=== PATIENT | male | born 1965 | race American Indian/Alaskan Native ===

== ENCOUNTER 2019-04-28 18:57 | Emergency (ER) | payer MEDICARE, MEDICAID ==
--- NOTE | 2019-04-28 20:31 | Emergency Department Report ---
ED General Adult HPI - General Chief complaint: Psych Stated complaint: SCHIZOPHRENIA Time Seen by Provider: 04/28/19 19:39 Source: patient, family, EMS Mode of arrival: Ambulatory Limitations: No Limitations - History of Present Illness Initial comments: Patient presents to the emergency department a chief complaint of aggressive behavior and noncompliance with medications. Patient has a history of paranoid schizophrenia and has not taken his medications since January 23. patient states that he has no suicidal or homicidal ideations. The patient is to the ED with his sister who is his guardian. -: Gradual Improves with: none Worsens with: none Associated Symptoms: denies other symptoms Treatments Prior to Arrival: none - Related Data Allergies Allergy/AdvReac Type Severity Reaction Status Date / Time No Known Allergies Allergy Verified 04/28/19 19:22 ED Review of Systems ROS: Stated complaint: SCHIZOPHRENIA Other details as noted in HPI Comment: All other systems reviewed and negative Constitutional: denies: chills, fever Eyes: denies: eye pain, eye discharge, vision change ENT: denies: ear pain, throat pain Respiratory: denies: cough, shortness of breath, wheezing Cardiovascular: denies: chest pain, palpitations Endocrine: no symptoms reported Gastrointestinal: denies: abdominal pain, nausea, diarrhea Genitourinary: denies: urgency, dysuria Musculoskeletal: denies: back pain, joint swelling, arthralgia Skin: denies: rash, lesions Neurological: denies: headache, weakness, paresthesias Psychiatric: denies: anxiety, depression Hematological/Lymphatic: denies: easy bleeding, easy bruising ED Past Medical Hx - Past Medical History Previous Medical History?: Yes Hx Psychiatric Treatment: Yes (Schizophrenia) - Surgical History Past Surgical History?: No - Social History Smoking Status: Current Every Day Smoker Substance Use Type: None ED Physical Exam - General Limitations: No Limitations General appearance: alert, in no apparent distress - Head Head exam: Present: atraumatic, normocephalic - Eye Eye exam: Present: normal appearance - ENT ENT exam: Present: mucous membranes moist - Neck Neck exam: Present: normal inspection - Respiratory Respiratory exam: Present: normal lung sounds bilaterally. Absent: respiratory distress, wheezes, rales - Cardiovascular Cardiovascular Exam: Present: regular rate, normal rhythm. Absent: systolic murmur, diastolic murmur, rubs, gallop - GI/Abdominal GI/Abdominal exam: Present: soft, normal bowel sounds - Rectal Rectal exam: Present: deferred - Extremities Exam Extremities exam: Present: normal inspection - Back Exam Back exam: Present: normal inspection - Neurological Exam Neurological exam: Present: alert, oriented X3 - Psychiatric Psychiatric exam: Present: normal affect, normal mood, flat affect, other (paranoid and tangential speech). Absent: homicidal ideation, suicidal ideation - Skin Skin exam: Present: warm, dry, intact, normal color. Absent: rash ED Course Vital Signs 04/28/19 19:44 Temperature 98.6 F Pulse Rate 98 H Respiratory 16 Rate Blood Pressure 139/96 O2 Sat by Pulse 97 Oximetry ED Medical Decision Making - Lab Data Result diagrams: 04/28/19 22:08 04/28/19 22:08 Lab Results 04/28/19 04/28/19 04/28/19 Range/Units 22:08 22:08 22:08 WBC 6.7 (4.5-11.0) K/mm3 RBC 4.28 (3.65-5.03) M/mm3 Hgb 13.9 (11.8-15.2) gm/dl Hct 40.3 (35.5-45.6) % MCV 94 (84-94) fl MCH 33 H (28-32) pg MCHC 35 H (32-34) % RDW 13.3 (13.2-15.2) % Plt Count 346 (140-440) K/mm3 Lymph % (Auto) 33.0 (13.4-35.0) % [place] % (Auto) 11.4 H (0.0-7.3) % Eos % (Auto) 2.1 (0.0-4.3) % Baso % (Auto) 1.3 (0.0-1.8) % Lymph # 2.2 (1.2-5.4) K/mm3 [place] # 0.8 (0.0-0.8) K/mm3 Eos # 0.1 (0.0-0.4) K/mm3 Baso # 0.1 (0.0-0.1) K/mm3 Seg Neutrophils % 52.2 (40.0-70.0) % Seg Neutrophils # 3.5 (1.8-7.7) K/mm3 Sodium 141 (137-145) mmol/L Potassium 3.9 (3.6-5.0) mmol/L Chloride 103.2 (98-107) mmol/L Carbon Dioxide 25 (22-30) mmol/L Anion Gap 17 mmol/L BUN 9 (9-20) mg/dL Creatinine 1.1 (0.8-1.5) mg/dL Estimated GFR > 60 ml/min BUN/Creatinine Ratio 8 % Glucose 86 (75-100) mg/dL Calcium 8.7 (8.4-10.2) mg/dL Total Bilirubin 0.20 (0.1-1.2) mg/dL AST 17 (5-40) units/L ALT 10 (7-56) units/L Alkaline Phosphatase 83 (35-129) units/L Total Protein 7.2 (6.3-8.2) g/dL Albumin 3.8 L (3.9-5) g/dL Albumin/Globulin Ratio 1.1 % Salicylates < 0.3 L (2.8-20.0) mg/dL Acetaminophen (10.0-30.0) ug/mL Plasma/Serum Alcohol (0-0.07) % 04/28/19 04/28/19 Range/Units 22:08 22:08 WBC (4.5-11.0) K/mm3 RBC (3.65-5.03) M/mm3 Hgb (11.8-15.2) gm/dl Hct (35.5-45.6) % MCV (84-94) fl MCH (28-32) pg MCHC (32-34) % RDW (13.2-15.2) % Plt Count (140-440) K/mm3 Lymph % (Auto) (13.4-35.0) % [place] % (Auto) (0.0-7.3) % Eos % (Auto) (0.0-4.3) % Baso % (Auto) (0.0-1.8) % Lymph # (1.2-5.4) K/mm3 [place] # (0.0-0.8) K/mm3 Eos # (0.0-0.4) K/mm3 Baso # (0.0-0.1) K/mm3 Seg Neutrophils % (40.0-70.0) % Seg Neutrophils # (1.8-7.7) K/mm3 Sodium (137-145) mmol/L Potassium (3.6-5.0) mmol/L Chloride (98-107) mmol/L Carbon Dioxide (22-30) mmol/L Anion Gap mmol/L BUN (9-20) mg/dL Creatinine (0.8-1.5) mg/dL Estimated GFR ml/min BUN/Creatinine Ratio % Glucose (75-100) mg/dL Calcium (8.4-10.2) mg/dL Total Bilirubin (0.1-1.2) mg/dL AST (5-40) units/L ALT (7-56) units/L Alkaline Phosphatase (35-129) units/L Total Protein (6.3-8.2) g/dL Albumin (3.9-5) g/dL Albumin/Globulin Ratio % Salicylates (2.8-20.0) mg/dL Acetaminophen < 5.0 L (10.0-30.0) ug/mL Plasma/Serum Alcohol < 0.01 (0-0.07) % - Medical Decision Making medically cleared awaiting psycgh evaluation and placement Critical care attestation.: If time is entered above; I have spent that time in minutes in the direct care of this critically ill patient, excluding procedure time. ED Disposition Clinical Impression: Schizophrenia, Aggressive behavior, Noncompliance with medications Disposition: DC/TX-65 PSY HOSP/PSY UNIT Is pt being admited?: No Does the pt Need Aspirin: No Condition: Stable
[2019-04-28 22:28] LABS: Basophils # (Auto) 0.1 K/mm3 (0.0-0.1); Basophils % (Auto) 1.3 % (0.0-1.8); Eosinophils # (Auto) 0.1 K/mm3 (0.0-0.4); Eosinophils % (Auto) 2.1 % (0.0-4.3); Hematocrit 40.3 % (35.5-45.6); Hemoglobin 13.9 gm/dl (11.8-15.2); Lymphocytes # (Auto) 2.2 K/mm3 (1.2-5.4); Mean Corpuscular HGB Conc 35 % (32-34); Mean Corpuscular Volume 94 fl (84-94); Monocytes # (Auto) 0.8 K/mm3 (0.0-0.8); Monocytes % (Auto) 11.4 % (0.0-7.3); Platelet Count 346 K/mm3 (140-440); Red Blood Count 4.28 M/mm3 (3.65-5.03); Red Cell Distribution Width 13.3 % (13.2-15.2)
[2019-04-28 22:53] LABS: Alanine Aminotransferase 10 units/L (7-56); Albumin 3.8 g/dL (3.9-5); BUN/Creatinine Ratio 8; Blood Urea Nitrogen 9 mg/dL (9-20); Calcium 8.7 mg/dL (8.4-10.2); Hemolysis Index 16
[2019-04-29 03:43] LABS: Amphetamine Screen,Urine PRESUMPTIVE NEGATIVE; Benzodiazepines Screen,Urine PRESUMPTIVE NEGATIVE; Cocaine Screen,Urine PRESUMPTIVE NEGATIVE; Methadone Screen,Urine PRESUMPTIVE NEGATIVE; Opiate Screen,Urine PRESUMPTIVE NEGATIVE
[2019-04-29 03:44] LABS: Bilirubin,Urine NEG (Negative); Blood,Urine SM (Negative); Color,Urine Yellow (Yellow); Mucus,Urine 1+ /HPF; Protein,Urine <15 mg/dL mg/dL (Negative)
[2019-04-29 04:04] LABS: Cannabinoid Screen,Urine PRESUMPTIVE POSITIVE
[2019-04-29 06:22] VITALS: BP 155/98
== END 2019-04-29 08:31 ==
LOC: ED 18:57
DX: F20.9 Schizophrenia, unspecified (principal); F17.200 Nicotine dependence, unspecified, uncomplicated; Z91.14 Patient's other noncompliance with medication regimen
CPT/HCPCS: 36415; 80053; 80307; 80320; 81001; 85025; 99284; G0480

== ENCOUNTER 2019-04-29 04:54 | Inpatient (IN) | payer MEDICARE ==
--- NOTE | 2019-04-29 11:52 | Consultation ---
History of Present Illness - Reason for Consult Medical management - History of Present Illness 53-year-old maleWas brought to the ER for aggressive behavior and nonadherence to medications. Has a known history of paranoid schizophrenia and had not taken his medication since January 23. The patient denied suicidal homicidal ideation. Past medical history; schizophrenia Past surgical history; denies any major surgeries Social history; current everyday smoker Family history, denies family history of mental illness Medications and Allergies Allergies Allergy/AdvReac Type Severity Reaction Status Date / Time No Known Allergies Allergy Verified 04/28/19 19:22 Home Medications Medication Instructions Recorded Confirmed Last Taken Type Amantadine [Symmetrel] 50 mg PO BID 04/29/19 04/29/19 Unknown History FLUoxetine [PROzac] 20 mg PO QDAY 04/29/19 04/29/19 Unknown History Haloperidol 100 mg IM Q28D 05/08/19 05/08/19 05/01/19 11:00 History Olanzapine [Olanzapine Odt] 10 mg PO BID #60 tab.rapdis 05/08/19 Unknown Rx Review of Systems ROS unobtainable: due to mental status Exam - Constitutional General appearance: Present: no acute distress, well-nourished - EENT Eyes: Present: PERRL ENT: hearing intact, clear oral mucosa - Neck Neck: Present: supple, normal ROM - Respiratory Respiratory effort: normal Respiratory: bilateral: CTA - Cardiovascular Heart Sounds: Present: S1 & S2. Absent: rub, click - Extremities Extremities: pulses symmetrical, No edema Peripheral Pulses: within normal limits - Abdominal General gastrointestinal: Present: soft, non-tender, non-distended, normal bowel sounds Male genitourinary: Present: normal - Integumentary Integumentary: Present: clear, warm, dry - Musculoskeletal Musculoskeletal: gait normal, strength equal bilaterally - Psychiatric Psychiatric: no appropriate mood/affect, no intact judgment & insight - Neurologic Neurologic: CNII-XII intact, moves all extremities Assessment and Plan 53-year-old man with history of schizophrenia brought to the hospital for nonadherence to medications and aggressive behavior. Paranoid schizophrenia Management per psychiatrist Patient does not have any other known chronic medical issues Tobacco abuse/dependence - tobacco cessation counseling performed for 11 minutes, nicotine patches as needed
[2019-04-29] MEDS ORDERED: HALDOL IM PRN (20:38)
[2019-04-29] MEDS: ATIVAN IM SCH (21:11)
[2019-04-29] MEDS: SYMMETREL PO SCH (21:47)
[2019-04-30] MEDS: ATIVAN IM SCH (05:22)
[2019-04-30] MEDS ORDERED: ATIVAN IM PRN (05:35)
[2019-04-30 07:52] LABS: Chol/HDL Ratio 3.7 %
[2019-04-30] MEDS ORDERED: PROzac PO SCH (10:00)
[2019-04-30] MEDS: SYMMETREL PO SCH ×2 (10:06→23:09)
--- NOTE | 2019-04-30 19:06 | History and Physical Report ---
GP History & Physical - History of Present Illness Date of admission: 04/29/19 Date of Examination: 04/30/19 Reason for Admission: Danger to self, Psychopathology interference, Unable to care for self Chief Complaint: Hearing voices History of Present Illness: The patient is a 53yo disabled AAM with history of Paranoid Schizophrenia His sister is his Guardian. The patient is admitted to the [facility] via the ED with compl aints of aggressive behavior and noncompliance with medications. The patient was accompanied to the ED by his sister. Sister reports that patient has not taken his medications since January 23. Patient is paranoid, not caring for self, disorganized, not eating and responding to internal stimuli. Patient endorses auditory hallucinations and paranoia but denies SI/HI. Legal Status: Court-Appointed Guardian Patient Problems: Current Active Problems Paranoid schizophrenia (Acute) Reaction to Hospitalization: Resistant Substance History - Substance History Drug Use: none Hx Tobacco Use: Yes Alcohol Use: No Past psychiatric history - Past Medical History Past Medical History: No medical history - past Psychiatric treatment and history Psych: Schizophrenia - Social History Social history: single (disabled, sister is his Guardian and he resides at a long-term. ) Review of Systems All systems: negative Psychiatric: hallucinations, paranoia Results - Results Labs/Vitals: Laboratory Last Values 5.4 % (4-6) 04/30/19 07:21 Triglycerides 86 mg/dL (2-149) 04/30/19 07:21 Cholesterol 189 mg/dL (50-199) 04/30/19 07:21 145 mg/dL (50-130) H 04/30/19 07:21 51 mg/dL (40-59) 04/30/19 07:21 3.70 % 04/30/19 07:21 Last Vital Signs Temp 98.2 F 04/30/19 10:00 Pulse 100 H 04/30/19 10:00 Resp 18 04/29/19 19:57 BP 117/82 04/30/19 10:00 Pulse Ox 97 04/29/19 19:57 Physical Examination - Constitutional Vitals: Vital Signs Temp Pulse Resp BP Pulse Ox 98.2 F 100 H 18 117/82 97 04/30/19 10:00 04/30/19 10:00 04/29/19 19:57 04/30/19 10:00 04/29/19 19:57 Temperature -Last 24 Hours Temperature 98.2 F Temperature 97.2 F General appearance: Present: no acute distress, disheveled, malodorous - EENT Eyes: Present: PERRL, EOM intact ENT: hearing intact, clear oral mucosa - Neck Neck: Present: supple, normal ROM - Respiratory Respiratory effort: normal Mental Status Exam - Vital signs Last Vital Signs Temp 98.2 F 04/30/19 10:00 Pulse 100 H 04/30/19 10:00 Resp 18 04/29/19 19:57 BP 117/82 04/30/19 10:00 Pulse Ox 97 04/29/19 19:57 - Exam Orientation: time, place, person Affect: agitated Mood: congruent with affect Thought content: delusions, paranoia Thought Process: Intact Perceptions: hallucinations Speech: normal rate and pattern Concentration: distractible Motor activity: agitated Level of consciousness: alert Memory: Intact Interaction: uncooperative Assessment and Plan - Psychiatric problem (1) Paranoid schizophrenia Current Visit: Yes Status: Acute plan to address problem: Patient will be admitted for inpatient psychiatric evaluation, medication adjustment and close monitoring The patient's behavior, mood, sleep and appetite will be closely monitored. Patient will be enrolled in individual and group therapeutic sessions and encouraged to attend. Patient will be provided with a safe and structured environment. Patient's physical health needs will be addressed by the Hospitalist. Social Assessment will be completed and the English Lecturer will work with patient and family to ensure a suitable and safe disposition Medication adjustment will be made as clinically indicated The patient agreed on the treatment plan, understood the risk, benefit, alternative treatment, potential consequence of no treatment, and gave informed consent. Physician Certification - Certification Statement Physician Certification Statement: This is an acknowledgement statement that ASAF DESAI is a 53 year old M who requires inpatient psychiatric admission for treatment which could reasonably be expected to improve the patient's condition for Schizophrenia Estimated period of time patient will need to remain in the hospital: 7 days Plan for post-hospital care: Out-patient care Medications & Allergies - Medications Allergies/Adverse Reactions: Allergies No Known Allergies Allergy (Verified 04/28/19 19:22) Home Medications: Home Medications Medication Instructions Recorded Confirmed Last Taken Type Amantadine [Symmetrel] 50 mg PO BID 04/29/19 04/29/19 Unknown History FLUoxetine [PROzac] 20 mg PO QDAY 04/29/19 04/29/19 Unknown History Haloperidol Lactate 100 mg IM QMONTH 04/29/19 04/29/19 Unknown History Olanzapine [Olanzapine Odt] 10 mg PO BID 04/29/19 04/29/19 Unknown History Active Medications: Generic Name Dose Route Start Last Admin Trade Name Freq PRN Reason Stop Dose Admin Amantadine HCl 50 mg 04/29/19 22:00 04/30/19 10:06 Symmetrel PO 50 mg BID KASANDRA Administration Fluoxetine HCl 20 mg 04/30/19 10:00 04/30/19 10:05 Prozac PO 20 mg QDAY KASANDRA Administration Haloperidol Lactate 5 mg 04/29/19 20:38 04/29/19 21:11 Haldol IM 5 mg Q6H PRN Administration Agitation Lorazepam 2 mg 04/30/19 05:35 Ativan IM Q6HR PRN Agitation Olanzapine 10 mg 04/30/19 10:00 04/30/19 10:06 Zyprexa Zydis PO 10 mg QDAY KASANDRA Administration
[2019-04-30] MEDS ORDERED: OLANZAPINE 10 MG PO SCH (22:00)
--- NOTE | 2019-05-01 07:45 | Progress Note ---
Subjective Date of service: 05/01/19 Principal diagnosis: Paranoid Schizophrenia Subjective Comment: Patient is withdrawn and isolates in his room. Patient seen this morning. He is guarded and appears to be paranoid. He denies SI/HI/AVH. He covers his mouth with tissue paper when talking with me. He is compliant with medications and denies side effects. He is fine with resuming Haldol D this morning. Objective - Criteria for Continued Treatment Criteria for Continued Treatment: Improving Level of Functioning, Reducing Isolative Behaviors, Stablizing Level of Functioning, Improving Emotional/Socia - Objective Observation Participation Level: Minimal Assessment and Plan - Patient Problems (1) Paranoid schizophrenia Current Visit: Yes Status: Acute Plan to address problem: Patient will be admitted for inpatient psychiatric evaluation, medication adjustment and close monitoring The patient's behavior, mood, sleep and appetite will be closely monitored. Patient will be enrolled in individual and group therapeutic sessions and encouraged to attend. Patient will be provided with a safe and structured environment. Patient's physical health needs will be addressed by the Hospitalist. Social Assessment will be completed and the Assembly Hand will work with patient and family to ensure a suitable and safe disposition Medication adjustment will be made as clinically indicated Haldol D 100mg qmo to be re-started this morning The patient agreed on the treatment plan, understood the risk, benefit, alternative treatment, potential consequence of no treatment, and gave informed consent. Mental Status Exam - Vital signs Last Vital Signs Temp 98.2 F 04/30/19 10:00 Pulse 100 H 04/30/19 10:00 Resp 18 04/29/19 19:57 BP 117/82 04/30/19 10:00 Pulse Ox 97 04/29/19 19:57 - Exam Orientation: time, place, person Affect: flat Mood: calm Thought content: paranoia Thought Process: Intact Perceptions: none Speech: normal rate and pattern Concentration: focused Motor activity: normal Level of consciousness: alert Memory: Intact Interaction: cooperative Medications & Allergies - Medications Allergies/Adverse Reactions: Allergies No Known Allergies Allergy (Verified 04/28/19 19:22) Home Medications: Home Medications Medication Instructions Recorded Confirmed Last Taken Type Amantadine [Symmetrel] 50 mg PO BID 04/29/19 04/29/19 Unknown History FLUoxetine [PROzac] 20 mg PO QDAY 04/29/19 04/29/19 Unknown History Haloperidol Lactate 100 mg IM QMONTH 04/29/19 04/29/19 Unknown History Olanzapine [Olanzapine Odt] 10 mg PO BID 04/29/19 04/29/19 Unknown History Active Medications: Generic Name Dose Route Start Last Admin Trade Name Freq PRN Reason Stop Dose Admin Amantadine HCl 50 mg 04/29/19 22:00 04/30/19 23:09 Symmetrel PO 50 mg BID KASANDRA Administration Fluoxetine HCl 20 mg 05/01/19 10:00 Prozac PO QDAY KASANDRA Haloperidol Decanoate 100 mg 05/01/19 10:00 Haldol Decanoate IM Q28D KASANDRA Haloperidol Lactate 5 mg 04/29/19 20:38 04/29/19 21:11 Haldol IM 5 mg Q6H PRN Administration Agitation Lorazepam 2 mg 04/30/19 05:35 Ativan IM Q6HR PRN Agitation Olanzapine 10 mg 04/30/19 22:00 04/30/19 23:10 Zyprexa PO 10 mg BID KASANDRA Administration
[2019-05-01] MEDS ORDERED: HALOPERIDOL LACTATE IM SCH (09:30)
[2019-05-01] MEDS ORDERED: HALDOL DECANOATE IM SCH (10:00)
[2019-05-01] MEDS: PROzac PO SCH (11:36)
[2019-05-01] MEDS: SYMMETREL PO SCH ×2 (11:42→21:43)
[2019-05-02] MEDS: PROzac PO SCH (09:28)
[2019-05-02] MEDS: SYMMETREL PO SCH ×2 (09:28→21:00)
--- NOTE | 2019-05-03 07:06 | Progress Note ---
Subjective Date of service: 05/02/19 Principal diagnosis: Paranoid Schizophrenia Subjective Comment: Patient seen this morning. He is guarded and appears to be paranoid. He refused his medications He denies SI/HI/AVH. He received Haldol D yesterday. No side effect reported or observed. Orientation: time, place, person Affect: flat Mood: calm Thought content: paranoia Thought Process: Intact Perceptions: none Speech: normal rate and pattern Concentration: focused Motor activity: normal Level of consciousness: alert Memory: Intact Interaction: cooperative Objective - Criteria for Continued Treatment Criteria for Continued Treatment: Improving Level of Functioning, Reducing Isolative Behaviors, Improving Treatment / Medication Compliance, Stablizing Level of Functioning, Improving Emotional/Socia - Objective Observation Participation Level: Minimal Assessment and Plan - Patient Problems (1) Paranoid schizophrenia Current Visit: Yes Status: Acute Plan to address problem: Patient will be admitted for inpatient psychiatric evaluation, medication adjustment and close monitoring The patient's behavior, mood, sleep and appetite will be closely monitored. Patient will be enrolled in individual and group therapeutic sessions and encouraged to attend. Patient will be provided with a safe and structured environment. Patient's physical health needs will be addressed by the Hospitalist. Social Assessment will be completed and the Child Day Care Provider will work with patient and family to ensure a suitable and safe disposition Medication adjustment will be made as clinically indicated Haldol D 100mg qmo was restarted yesterday The patient agreed on the treatment plan, understood the risk, benefit, alternative treatment, potential consequence of no treatment, and gave informed consent.
[2019-05-03] MEDS: SYMMETREL PO SCH ×2 (10:01→21:44)
[2019-05-03] MEDS: PROzac PO SCH (10:01)
[2019-05-04] MEDS: PROzac PO SCH (11:00)
[2019-05-04] MEDS: SYMMETREL PO SCH ×2 (11:00→21:22)
--- NOTE | 2019-05-04 20:32 | Progress Note ---
Subjective Date of service: 05/03/19 Principal diagnosis: Paranoid Schizophrenia Subjective Comment: Patient is guarded, paranoid and refuses his medications He denies SI/HI/AVH. Orientation: time, place, person Affect: flat Mood: calm Thought content: paranoia Thought Process: Intact Perceptions: none Speech: normal rate and pattern Concentration: focused Motor activity: normal Level of consciousness: alert Memory: Intact Interaction: cooperative Objective - Criteria for Continued Treatment Criteria for Continued Treatment: Reducing Isolative Behaviors, Stablizing Level of Functioning, Improving Emotional/Socia - Objective Observation Participation Level: Moderate Assessment and Plan - Patient Problems (1) Paranoid schizophrenia Current Visit: Yes Status: Acute Plan to address problem: Patient will be admitted for inpatient psychiatric evaluation, medication adjustment and close monitoring The patient's behavior, mood, sleep and appetite will be closely monitored. Patient will be enrolled in individual and group therapeutic sessions and encouraged to attend. Patient will be provided with a safe and structured environment. Patient's physical health needs will be addressed by the Hospitalist. Social Assessment will be completed and the Child Welfare Worker will work with patient and family to ensure a suitable and safe disposition Medication adjustment will be made as clinically indicated The patient agreed on the treatment plan, understood the risk, benefit, alternative treatment, potential consequence of no treatment, and gave informed consent. Medications & Allergies - Medications Allergies/Adverse Reactions: Allergies No Known Allergies Allergy (Verified 04/28/19 19:22) Home Medications: Home Medications Medication Instructions Recorded Confirmed Last Taken Type Amantadine [Symmetrel] 50 mg PO BID 04/29/19 04/29/19 Unknown History FLUoxetine [PROzac] 20 mg PO QDAY 04/29/19 04/29/19 Unknown History Haloperidol Lactate 100 mg IM QMONTH 04/29/19 04/29/19 Unknown History Olanzapine [Olanzapine Odt] 10 mg PO BID 04/29/19 04/29/19 Unknown History Active Medications: Generic Name Dose Route Start Last Admin Trade Name Freq PRN Reason Stop Dose Admin Amantadine HCl 50 mg 04/29/19 22:00 05/04/19 11:00 Symmetrel PO 50 mg BID KASANDRA Administration Fluoxetine HCl 20 mg 05/01/19 10:00 05/04/19 11:00 Prozac PO 20 mg QDAY KASANDRA Administration Haloperidol Decanoate 100 mg 05/01/19 10:00 05/01/19 11:37 Haldol Decanoate IM 100 mg Q28D KASANDRA Administration Haloperidol Lactate 5 mg 04/29/19 20:38 04/29/19 21:11 Haldol IM 5 mg Q6H PRN Administration Agitation Lorazepam 2 mg 04/30/19 05:35 05/01/19 11:07 Ativan IM 2 mg Q6HR PRN Administration Agitation Olanzapine 10 mg 04/30/19 22:00 05/04/19 11:00 Zyprexa PO 10 mg BID KASANDRA Administration
--- NOTE | 2019-05-04 20:35 | Progress Note ---
Subjective Date of service: 05/04/19 Principal diagnosis: Paranoid Schizophrenia Subjective Comment: Patient is psychotic, disorganized, guarded, paranoid and continues to refuse his medications He denies SI/HI/AVH. Orientation: time, place, person Affect: flat Mood: calm Thought content: paranoia Thought Process: Intact Perceptions: none Speech: normal rate and pattern Concentration: focused Motor activity: normal Level of consciousness: alert Memory: Intact Interaction: cooperative Objective - Criteria for Continued Treatment Criteria for Continued Treatment: Improving Level of Functioning, Stablizing Level of Functioning, Improving Emotional/Socia - Objective Observation Participation Level: Moderate Assessment and Plan - Patient Problems (1) Paranoid schizophrenia Current Visit: Yes Status: Acute Plan to address problem: Patient will be admitted for inpatient psychiatric evaluation, medication adjustment and close monitoring The patient's behavior, mood, sleep and appetite will be closely monitored. Patient will be enrolled in individual and group therapeutic sessions and encouraged to attend. Patient will be provided with a safe and structured environment. Patient's physical health needs will be addressed by the Hospitalist. Social Assessment will be completed and the Cleat Blanker will work with patient and family to ensure a suitable and safe disposition Medication adjustment will be made as clinically indicated The patient agreed on the treatment plan, understood the risk, benefit, alternative treatment, potential consequence of no treatment, and gave informed consent.
--- NOTE | 2019-05-05 08:16 | Progress Note ---
Subjective Date of service: 05/05/19 Principal diagnosis: Paranoid Schizophrenia Subjective Comment: Patient has no insight, attempts to cheek his medication or refuse to take his medication. He is psychotic, disorganized, guarded and paranoid but denies SI/HI/AVH. Orientation: time, place, person Affect: flat Mood: calm Thought content: paranoia Thought Process: Intact Perceptions: none Speech: normal rate and pattern Concentration: focused Motor activity: normal Level of consciousness: alert Memory: Intact Interaction: cooperative Objective - Criteria for Continued Treatment Criteria for Continued Treatment: Stablizing Level of Functioning, Improving Emotional/Socia, Decreasing Frequency of Hospitalization - Objective Observation Participation Level: Moderate Assessment and Plan - Patient Problems (1) Paranoid schizophrenia Current Visit: Yes Status: Acute Plan to address problem: Patient will be admitted for inpatient psychiatric evaluation, medication adjustment and close monitoring The patient's behavior, mood, sleep and appetite will be closely monitored. Patient will be enrolled in individual and group therapeutic sessions and e ncouraged to attend. Patient will be provided with a safe and structured environment. Patient's physical health needs will be addressed by the Hospitalist. Social Assessment will be completed and the Inspector Insulation will work with patient and family to ensure a suitable and safe disposition Medication adjustment will be made as clinically indicated Will change Zyprexa to Zydis as patient is cheeking his meds The patient agreed on the treatment plan, understood the risk, benefit, alternative treatment, potential consequence of no treatment, and gave informed consent. Medications & Allergies - Medications Allergies/Adverse Reactions: Allergies No Known Allergies Allergy (Verified 04/28/19 19:22) Home Medications: Home Medications Medication Instructions Recorded Confirmed Last Taken Type Amantadine [Symmetrel] 50 mg PO BID 04/29/19 04/29/19 Unknown History FLUoxetine [PROzac] 20 mg PO QDAY 04/29/19 04/29/19 Unknown History Haloperidol Lactate 100 mg IM QMONTH 04/29/19 04/29/19 Unknown History Olanzapine [Olanzapine Odt] 10 mg PO BID 04/29/19 04/29/19 Unknown History Active Medications: Generic Name Dose Route Start Last Admin Trade Name Freq PRN Reason Stop Dose Admin Amantadine HCl 50 mg 04/29/19 22:00 05/04/19 21:22 Symmetrel PO 50 mg BID KASANDRA Administration Fluoxetine HCl 20 mg 05/01/19 10:00 05/04/19 11:00 Prozac PO 20 mg QDAY KASANDRA Administration Haloperidol Decanoate 100 mg 05/01/19 10:00 05/01/19 11:37 Haldol Decanoate IM 100 mg Q28D KASANDRA Administration Haloperidol Lactate 5 mg 04/29/19 20:38 04/29/19 21:11 Haldol IM 5 mg Q6H PRN Administration Agitation Lorazepam 2 mg 04/30/19 05:35 05/01/19 11:07 Ativan IM 2 mg Q6HR PRN Administration Agitation Olanzapine 10 mg 04/30/19 22:00 05/04/19 21:22 Zyprexa PO 10 mg BID KASANDRA Administration
[2019-05-05] MEDS: PROzac PO SCH (10:26)
[2019-05-05] MEDS: SYMMETREL PO SCH ×2 (10:26→22:00)
--- NOTE | 2019-05-06 09:04 | Progress Note ---
Subjective Date of service: 05/06/19 Principal diagnosis: Paranoid Schizophrenia Subjective Comment: Patient is withdrawn, isolates, guarded, paranoid but denies SI/HI/AVH. He accepted medications and denies side effects. Orientation: time, place, person Affect: flat Mood: calm Thought content: paranoia Thought Process: Intact Perceptions: none Speech: normal rate and pattern Concentration: focused Motor activity: normal Level of consciousness: alert Memory: Intact Interaction: cooperative Objective - Criteria for Continued Treatment Criteria for Continued Treatment: Improving Level of Functioning, Stablizing Level of Functioning, Improving Emotional/Socia - Objective Observation Participation Level: Moderate Assessment and Plan - Patient Problems (1) Paranoid schizophrenia Current Visit: Yes Status: Acute Plan to address problem: Patient will be admitted for inpatient psychiatric evaluation, medication adjustment and close monitoring The patient's behavior, mood, sleep and appetite will be closely monitored. Patient will be enrolled in individual and group therapeutic sessions and encouraged to attend. Patient will be provided with a safe and structured environment. Patient's physical health needs will be addressed by the Hospitalist. Social Assessment will be completed and the Tumbler Dyeing Machine Operator will work with patient and family to ensure a suitable and safe disposition Medication adjustment will be made as clinically indicated The patient agreed on the treatment plan, understood the risk, benefit, alternative treatment, potential consequence of no treatment, and gave informed consent. Medications & Allergies - Medications Allergies/Adverse Reactions: Allergies No Known Allergies Allergy (Verified 04/28/19 19:22) Home Medications: Home Medications Medication Instructions Recorded Confirmed Last Taken Type Amantadine [Symmetrel] 50 mg PO BID 04/29/19 04/29/19 Unknown History FLUoxetine [PROzac] 20 mg PO QDAY 04/29/19 04/29/19 Unknown History Haloperidol Lactate 100 mg IM QMONTH 04/29/19 04/29/19 Unknown History Olanzapine [Olanzapine Odt] 10 mg PO BID 04/29/19 04/29/19 Unknown History Active Medications: Generic Name Dose Route Start Last Admin Trade Name Freq PRN Reason Stop Dose Admin Amantadine HCl 50 mg 04/29/19 22:00 05/05/19 22:00 Symmetrel PO 50 mg BID KASANDRA Administration Fluoxetine HCl 20 mg 05/01/19 10:00 05/05/19 10:26 Prozac PO 20 mg QDAY KASANDRA Administration Haloperidol Decanoate 100 mg 05/01/19 10:00 05/01/19 11:37 Haldol Decanoate IM 100 mg Q28D KASANDRA Administration Haloperidol Lactate 5 mg 04/29/19 20:38 04/29/19 21:11 Haldol IM 5 mg Q6H PRN Administration Agitation Lorazepam 2 mg 04/30/19 05:35 05/01/19 11:07 Ativan IM 2 mg Q6HR PRN Administration Agitation Olanzapine 10 mg 05/05/19 10:00 05/05/19 22:00 Zyprexa Zydis PO 10 mg BID KASANDRA Administration
[2019-05-06] MEDS: PROzac PO SCH (09:29)
[2019-05-06] MEDS: SYMMETREL PO SCH ×3 (09:30→21:48)
--- NOTE | 2019-05-07 08:58 | Progress Note ---
Subjective Date of service: 05/07/19 Principal diagnosis: Paranoid Schizophrenia Subjective Comment: Patient is calm, pleasant and interactive. He reports feeling better States that he is able to think more clearly, sleep and appetite are improved. He denies feeling paranoid. He denies SI/HI/AVH. His hygiene is improved. He accepted medications and denies side effects. Orientation: time, place, person Affect: Normal Mood: Good Thought content: WNL Thought Process: Intact Perceptions: none Speech: normal rate and pattern Concentration: focused Motor activity: normal Level of consciousness: alert Memory: Intact Interaction: cooperative Objective - Criteria for Continued Treatment Criteria for Continued Treatment: Stablizing Level of Functioning, Improving Emotional/Socia - Objective Observation Participation Level: Moderate Assessment and Plan - Patient Problems (1) Paranoid schizophrenia Current Visit: Yes Status: Acute Plan to address problem: Patient will be admitted for inpatient psychiatric evaluation, medication adjustment and close monitoring The patient's behavior, mood, sleep and appetite will be closely monitored. Patient will be enrolled in individual and group therapeutic sessions and encouraged to attend. Patient will be provided with a safe and structured environment. Patient's physical health needs will be addressed by the Hospitalist. Social Assessment will be completed and the Valve Steamer will work with patient and family to ensure a suitable and safe disposition Medication adjustment will be made as clinically indicated The patient agreed on the treatment plan, understood the risk, benefit, alternative treatment, potential consequence of no treatment, and gave informed consent. Will discharge in am tomorrow if he continues to do well Medications & Allergies - Medications Allergies/Adverse Reactions: Allergies No Known Allergies Allergy (Verified 04/28/19 19:22) Home Medications: Home Medications Medication Instructions Recorded Confirmed Last Taken Type Amantadine [Symmetrel] 50 mg PO BID 04/29/19 04/29/19 Unknown History FLUoxetine [PROzac] 20 mg PO QDAY 04/29/19 04/29/19 Unknown History Haloperidol Lactate 100 mg IM QMONTH 04/29/19 04/29/19 Unknown History Olanzapine [Olanzapine Odt] 10 mg PO BID 04/29/19 04/29/19 Unknown History Active Medications: Generic Name Dose Route Start Last Admin Trade Name Freq PRN Reason Stop Dose Admin Amantadine HCl 50 mg 04/29/19 22:00 05/06/19 21:48 Symmetrel PO 50 mg BID KASANDRA Administration Fluoxetine HCl 20 mg 05/01/19 10:00 05/06/19 09:29 Prozac PO 20 mg QDAY KASANDRA Administration Haloperidol Decanoate 100 mg 05/01/19 10:00 05/01/19 11:37 Haldol Decanoate IM 100 mg Q28D KASANDRA Administration Haloperidol Lactate 5 mg 04/29/19 20:38 04/29/19 21:11 Haldol IM 5 mg Q6H PRN Administration Agitation Lorazepam 2 mg 04/30/19 05:35 05/01/19 11:07 Ativan IM 2 mg Q6HR PRN Administration Agitation Olanzapine 10 mg 05/05/19 10:00 05/06/19 21:49 Zyprexa Zydis PO 10 mg BID KASANDRA Administration
[2019-05-07] MEDS: SYMMETREL PO SCH ×2 (09:29→21:20)
[2019-05-07] MEDS: PROzac PO SCH (09:55)
[2019-05-08 00:08] VITALS: BP 136/96
[2019-05-08] MEDS: SYMMETREL PO SCH (09:06)
[2019-05-08] MEDS: PROzac PO SCH (09:07)
--- NOTE | 2019-05-08 10:01 | Discharge Summary ---
Providers - Providers Date of Admission: 04/29/19 04:54 Date of discharge: 05/08/19 Attending physician: FELY ANGUIANO MD 04/29/19 09:00 Consult to Physician [CONS] Routine Comment: Consulting Provider: SUSANNA NASCIMENTO Physician Instructions: Reason For Exam: H&P, Medical Management Primary care physician: LEAD CASTER Hospitalization Reason for admission: Danger to self, Psychopathology interference, Unable to care for self Allergies/Adverse Reactions: Allergies No Known Allergies Allergy (Verified 04/28/19 19:22) Vital Signs: Last Vital Signs Temp 98.7 F 05/07/19 20:07 Pulse 69 05/07/19 20:07 Resp 18 05/07/19 20:07 BP 136/96 05/07/19 20:07 Pulse Ox 98 05/07/19 20:07 Last Lab: Laboratory Last Values 5.4 % (4-6) 04/30/19 07:21 Triglycerides 86 mg/dL (2-149) 04/30/19 07:21 Cholesterol 189 mg/dL (50-199) 04/30/19 07:21 145 mg/dL (50-130) H 04/30/19 07:21 51 mg/dL (40-59) 04/30/19 07:21 3.70 % 04/30/19 07:21 - Discharge Diagnoses (1) Paranoid schizophrenia Status: Acute Core Measure Documentation - Palliative Care Palliative Care/ Comfort Measures: Not Applicable Exam - Constitutional Vitals: Temp Pulse Resp BP Pulse Ox 98.7 F 69 18 136/96 98 05/07/19 20:07 05/07/19 20:07 05/07/19 20:07 05/07/19 20:07 05/07/19 20:07 Plan Care Plan Goals: Stay healthy Plan of Treatment: Take medications as prescribed and attend follow-ups Health Concerns: None Assessment: Paranoid Schizophrenia Follow up with: PRIMARY CARE, [Primary Care Provider] - 7 Days Prescriptions: Olanzapine [Olanzapine Odt] 10 mg PO BID #60 tabsean
[2019-05-28] MEDS ORDERED: HALDOL DECANOATE IM SCH (10:00)
== END 2019-05-08 11:30 | disposition home or self-care (01) | DRG 885 ==
LOC: 5A 04:54
PROVIDERS: ADMIT Psychiatry & Neurology Psychiatry; ATTEND Psychiatry & Neurology Psychiatry
DX: F20.0 Paranoid schizophrenia (principal); F17.200 Nicotine dependence, unspecified, uncomplicated; Z91.19 Patient's noncompliance with other medical treatment and regimen
CPT/HCPCS: 36415; 80061; 83036; G0378; J1630; J1631; J2060

== ENCOUNTER 2020-12-13 13:32 | Emergency (ER) | payer MEDICARE ==
--- NOTE | 2020-12-13 13:36 | Emergency Department Report ---
<KWASI MART - Last Filed: 12/13/20 15:13> ED General Adult HPI - General Stated complaint: POSS OVERDOSE Time Seen by Provider: 12/13/20 13:35 - History of Present Illness Initial comments: Patient is a 55-year-old male brought to the emergency department by medics for evaluation. Patient was witnessed by bystanders and later police wandering into traffic and vomiting at a bus stop. Upon arrival, medics state patient le thargic, noted patient has chronic pain and pinpoint pupils, consequently patient was given 2 g of Narcan IV in route to the hospital with some improvement of wakefulness. Patient arrives somnolent, in no acute distress, denies complaints. Patient denies any drug or alcohol use, states he felt sick to his stomach and tried to vomit, states he no longer feels ill. - Related Data Home Medications Medication Instructions Recorded Confirmed Last Taken Amantadine [Symmetrel] 50 mg PO BID 04/29/19 04/29/19 Unknown FLUoxetine [PROzac] 20 mg PO QDAY 04/29/19 04/29/19 Unknown Haloperidol 100 mg IM Q28D 05/08/19 05/08/19 05/01/19 11:00 Previous Rx's Medication Instructions Recorded Last Taken Type Olanzapine [Olanzapine Odt] 10 mg PO BID #60 tab.rapdis 05/08/19 Unknown Rx Allergies Allergy/AdvReac Type Severity Reaction Status Date / Time No Known Allergies Allergy Verified 04/28/19 19:22 ED Review of Systems Comment: All other systems reviewed and negative ED Past Medical Hx - Past Medical History Hx Psychiatric Treatment: Yes (Schizophrenia) Additional medical history: Drug abuse - Social History Smoking Status: Current Every Day Smoker - Medications Home Medications: Home Medications Medication Instructions Recorded Confirmed Last Taken Type Amantadine [Symmetrel] 50 mg PO BID 04/29/19 04/29/19 Unknown History FLUoxetine [PROzac] 20 mg PO QDAY 04/29/19 04/29/19 Unknown History Haloperidol 100 mg IM Q28D 05/08/19 05/08/19 05/01/19 11:00 History Olanzapine [Olanzapine Odt] 10 mg PO BID #60 tab.rapdis 05/08/19 Unknown Rx ED Medical Decision Making - Lab Data Result diagrams: 12/13/20 14:19 12/13/20 14:19 Labs 12/13/20 12/13/20 12/13/20 14:19 14:19 14:19 WBC 4.7 RBC 4.00 Hgb 12.9 Hct 37.5 MCV 94 MCH 32 MCHC 34 RDW 13.0 L Plt Count 351 Lymph % (Auto) 23.7 Bacon % (Auto) 9.1 H Eos % (Auto) 0.6 Baso % (Auto) 1.4 Lymph # (Auto) 1.1 L Bacon # (Auto) 0.4 Eos # (Auto) 0.0 Baso # (Auto) 0.1 Seg Neutrophils % 65.2 Seg Neutrophils # 3.1 Sodium 139 Potassium 3.3 L Chloride 102.2 Carbon Dioxide 26 Anion Gap 14 BUN 6 L Creatinine 1.0 Estimated GFR > 60 BUN/Creatinine Ratio 6 Glucose 89 Calcium 8.1 L Salicylates < 0.3 L Acetaminophen 12/13/20 14:19 WBC RBC Hgb Hct MCV MCH MCHC RDW Plt Count Lymph % (Auto) Bacon % (Auto) Eos % (Auto) Baso % (Auto) Lymph # (Auto) Bacon # (Auto) Eos # (Auto) Baso # (Auto) Seg Neutrophils % Seg Neutrophils # Sodium Potassium Chloride Carbon Dioxide Anion Gap BUN Creatinine Estimated GFR BUN/Creatinine Ratio Glucose Calcium Salicylates Acetaminophen 5.0 L Vital Signs (72 hours) 12/13/20 12/13/20 12/13/20 13:45 13:50 13:57 Temperature 98.7 F Pulse Rate 84 84 84 Respiratory 19 16 Rate Blood Pressure 101/69 104/64 O2 Sat by Pulse 96 96 Oximetry ED Disposition Clinical Impression: Paranoid schizophrenia Disposition: DC-01 TO HOME OR SELFCARE Condition: Stable Additional Instructions: Professional and Agency Contacts To help Resolve Crises(18/03) [place] Crisis Line: Suicide Prevention Line: Crisis Text Line: Text START to [phone] Emergency: 911 Outpatient COMMUNITY Behavioral Health Resources: [place]: [facility] [address], [place] [address] [place]: [facility] [address] [place] [address] [place]: [facility] - [address] [place] [address] Saturday thru Saturday - 8am - 5pm [place]: [facility] Address: [address], [place] [address] [place]: [facility] Address: [address] [place] [address] Saturday thru Saturday- 7am-2pm [facility] Address: [address] [place] [address] Saturday thru Saturday: 8:30AM-5PM In case of an emergency, please contact the following numbers: [place] Crisis and Access Line: Number: Crisis Text Line: (Text START) Number: 834188 Suicide Prevention Line: Number: Emergencyw Number: 911 SUBSTANCE ABUSE PROGRAMS: [facility] [place]: Location: [place], [place] [facility] Address: [address] [place] [address] [facility]: Address: [address] [place] [address] [facility]: Address: [address] [place] [address] [facility]: Address: [address] [place] [address] [facility] Address: [address] [place] [address]. Please contact above numbers to attempt placement into free based program. Medicaid Programs: [facility]: Address: [address] [place] [address] [facility]: Address: [address] [place] [id number] Referrals: PRIMARY CARE, [Primary Care Provider] - 3-5 Days <DULCE ANDERSON - Last Filed: 12/13/20 21:33> ED Course - Reevaluation(s) Reevaluation #1: 12/13/20 21:34 I received a call from [facility] mental health dipper operator stating that he discussed with patient family and they told him that he is danger for himself and he paranoid and threatening to kill himself. ED Medical Decision Making - Lab Data Result diagrams: 12/13/20 14:19 12/13/20 14:19 <JUAN ROSADO - Last Filed: 12/14/20 13:07> ED Review of Systems ROS: Stated complaint: POSS OVERDOSE Other details as noted in HPI ED Course Vital Signs 12/13/20 12/13/20 12/13/20 13:45 13:50 13:57 Temperature 98.7 F Pulse Rate 84 84 84 Respiratory 19 16 Rate Blood Pressure 101/69 104/64 Blood Pressure [Left] O2 Sat by Pulse 96 96 Oximetry 12/13/20 12/13/20 12/13/20 14:00 14:15 14:31 Temperature Pulse Rate 86 85 83 Respiratory 16 16 16 Rate Blood Pressure 94/68 94/68 94/68 Blood Pressure [Left] O2 Sat by Pulse 93 96 95 Oximetry 12/13/20 12/13/20 12/13/20 14:45 15:15 15:31 Temperature Pulse Rate 83 83 86 Respiratory 18 17 14 Rate Blood Pressure 94/68 109/70 109/70 Blood Pressure [Left] O2 Sat by Pulse 96 98 97 Oximetry 12/13/20 12/13/20 12/13/20 15:45 16:01 16:15 Temperature Pulse Rate 82 81 84 Respiratory 15 17 19 Rate Blood Pressure 109/70 124/77 124/77 Blood Pressure [Left] O2 Sat by Pulse 97 96 95 Oximetry 12/13/20 12/13/20 12/13/20 16:31 16:45 17:00 Temperature Pulse Rate 79 83 84 Respiratory 17 17 15 Rate Blood Pressure 124/77 124/77 135/91 Blood Pressure [Left] O2 Sat by Pulse 98 100 94 Oximetry 12/13/20 12/14/20 12/14/20 19:26 03:48 09:55 Temperature 98.3 F 98.2 F 97.4 F L Pulse Rate 83 71 66 Respiratory 16 16 Rate Blood Pressure Blood Pressure 131/84 140/89 133/87 [Left] O2 Sat by Pulse 100 100 98 Oximetry ED Medical Decision Making - Lab Data Result diagrams: 12/13/20 14:19 12/13/20 14:19 - Medical Decision Making 1013 has been rescinded by mental health team. I have provided disposition order and discharge instructions. Critical care attestation.: If time is entered above; I have spent that time in minutes in the direct care of this critically ill patient, excluding procedure time. ED Disposition Is pt being admited?: No Does the pt Need Aspirin: No
[2020-12-13] MEDS ORDERED: ONDANSETRON 4 MG/2 ML INJ IV ONE (13:42)
[2020-12-13] MEDS ORDERED: SODIUM CHLORIDE 0.9% 1000 ML 1,000 ML IV ONE (13:42)
[2020-12-13 14:39] LABS: Basophils # (Auto) 0.1 K/mm3 (0.0-0.1); Basophils % (Auto) 1.4 % (0.0-1.8); Eosinophils % (Auto) 0.6 % (0.0-4.3); Hematocrit 37.5 % (35.5-45.6); Hemoglobin 12.9 gm/dl (11.8-15.2); Lymphocytes # (Auto) 1.1 K/mm3 (1.2-5.4); Lymphocytes % (Auto) 23.7 % (13.4-35.0); Mean Corpuscular HGB Conc 34 % (32-34); Mean Corpuscular Volume 94 fl (84-94); Monocytes # (Auto) 0.4 K/mm3 (0.0-0.8); Monocytes % (Auto) 9.1 % (0.0-7.3); Platelet Count 351 K/mm3 (140-440)
[2020-12-13 15:01] LABS: BUN/Creatinine Ratio 6; Blood Urea Nitrogen 6 mg/dL (9-20); Calcium 8.1 mg/dL (8.4-10.2); Hemolysis Index 8
[2020-12-13] MEDS ORDERED: POTASSIUM CHLORIDE ER 20 MEQ TAB PO ONE (15:13)
[2020-12-13 19:03] LABS: Amphetamine Screen,Urine Negative; Benzodiazepines Screen,Urine Negative; Cocaine Screen,Urine Negative; Methadone Screen,Urine Negative; Opiate Screen,Urine Negative
[2020-12-13 19:07] LABS: Bilirubin,Urine NEG (Negative); Blood,Urine NEG (Negative); Color,Urine Yellow (Yellow); Urobilinogen,Urine < 2.0 mg/dL (<2.0)
[2020-12-13 19:10] LABS: Hyaline Casts,Urine 1 /LPF; Mucus,Urine FEW /HPF
[2020-12-13 19:15] LABS: Cannabinoid Screen,Urine Positive
--- NOTE | 2020-12-14 09:36 | Consultation ---
History of Present Illness - Reason for Consult Consult date: 12/14/20 Reason for consult: MHE Requesting physician: KWASI MART - History of Present Psychiatric Illness Per ED Provider: Patient is a 55-year-old male brought to the emergency department by medics for evaluation. Patient was witnessed by bystanders and later police wandering into traffic and vomiting at a bus stop. Upon arrival, medics state patient lethargic, noted patient has chronic pain and pinpoint pupils, consequently patient was given 2 g of Narcan IV in route to the hospital with some improvement of wakefulness. Patient arrives somnolent, in no acute distress, denies complaints. Patient denies any drug or alcohol use, states he felt sick to his stomach and tried to vomit, states he no longer feels ill. PSYCH HPI Patient is a 55-year-old, currently single and homeless -Monegas[place] male who denies any past psychiatric history but prior documentation shows patient has been admitted for paranoid schizophrenia before, who presented to the ED by the medics for mental health evaluation. Patient reported he is currently employed at [employer], though is homeless says he used most of his income on [employer] food which got him sick the other day where he was found throwing up in a bystander was to undergo police and he was brought to the hospital so he can get some much more needed relief and treatment. Patient denies feeling depressed or suicidal, patient states he does not really need help with anything at this moment he denies being suicidal, homicidal or hearing voices. Patient states he does have family here in [facility] he goes to spend some time with him and sometimes he lives so that he can work and be by himself. Patient UDS is negative for opiates PAST PSYCHIATRIC HISTORY Diagnoses: Per previous history, Paranoid schizophrenia. Suicide attempts or Self-harm behavior: None reported Prior psychiatric hospitalizations: None reported Substance Abuse history: marijuana Previous psychiatric medications tried: None reported Outpatient treatment: None reported PAST MEDICAL HISTORY: None reported Family Psychiatric History: None reported or documented SOCIAL HISTORY Marital Status: single Living Arrangements: homeless Employment Status: employed Access to guns/weapons: None reported Education: college drop out History of Abuse: None reported Legal History: None reported REVIEW OF SYSTEMS Constitutional: Negative for weight loss ENT: Negative for stridor Respiratory: Negative for cough or hemoptysis All other systems reviewed and are negative MENTAL STATUS EXAMINATION General Appearance and Behavior: not Age appropriate, good hygiene, wearing appropriate clothes, good eye contact, cooperative polite with questioning. Cooperation: Participating/engaged Psychomotor Behavior: unremarkable and within normal limits Mood: Good Affect and affective range: congruent with mood Thought Process: Fluent/Logical, Thought Content: Within reality, Speech: Normal volume, Regular rate and rhythm, Intellectual Functioning: Average Suicidal Ideation: Denies SI Homicidal Ideation: Denies HI Impulse Control: Unimpaired Insight and Judgment: Normal insight and judgment, Memory: Normal, Attention: Normal, Orientation: Alert, oriented, Assessment and Plan - Psychiatric problem (1) Encounter for screening examination for mental health and behavioral disorders Current Visit: Yes Status: Acute Z13.30 Treatment Plan MEDICATIONS: Risks, benefits and alternatives of medications discussed with the patient, questions answered and consent obtained from patient. PSYCHOTHERAPY: Supportive psychotherapy provided MEDICAL: Per primary team DELIRIUM PRECAUTIONS: Please re-orient patient frequently, keep lights on during the day, and minimize benzodiazepines and opiates as these medications could worsen patient's confusion. FRENCH BINDING FOLDER: DISPOSITION: Do not Recommend acute inpatient psychiatric hospitalization at this time. Case discussed with Dr. Rodríguez who agrees with current disposition LEGAL STATUS: 1013 rescinded FOLLOW-UP: Will sign off Thank you for the consult. Please contact with any questions and/or concerns. Medications and Allergies Allergies Allergy/AdvReac Type Severity Reaction Status Date / Time No Known Allergies Allergy Verified 04/28/19 19:22 Home Medications Medication Instructions Recorded Confirmed Last Taken Type Amantadine [Symmetrel] 50 mg PO BID 04/29/19 04/29/19 Unknown History FLUoxetine [PROzac] 20 mg PO QDAY 04/29/19 04/29/19 Unknown History Haloperidol 100 mg IM Q28D 05/08/19 05/08/19 05/01/19 11:00 History Olanzapine [Olanzapine Odt] 10 mg PO BID #60 tab.rapdis 05/08/19 Unknown Rx Mental Status Exam - Vital signs Last Vital Signs Temp 98.2 F 12/14/20 03:48 Pulse 71 12/14/20 03:48 Resp 16 12/14/20 03:48 BP 140/89 12/14/20 03:48 Pulse Ox 100 12/14/20 03:48 Results Result Diagrams: 12/13/20 14:19 12/13/20 14:19 Abnormal lab results 12/13/20 12/13/20 12/13/20 Range/Units 14:19 14:19 14:19 RDW 13.0 L (13.2-15.2) % Glynn % (Auto) 9.1 H (0.0-7.3) % Lymph # (Auto) 1.1 L (1.2-5.4) K/mm3 Potassium 3.3 L (3.6-5.0) mmol/L BUN 6 L (9-20) mg/dL Calcium 8.1 L (8.4-10.2) mg/dL Salicylates < 0.3 L (2.8-20.0) mg/dL Acetaminophen (10.0-30.0) ug/mL 12/13/20 Range/Units 14:19 RDW (13.2-15.2) % Glynn % (Auto) (0.0-7.3) % Lymph # (Auto) (1.2-5.4) K/mm3 Potassium (3.6-5.0) mmol/L BUN (9-20) mg/dL Calcium (8.4-10.2) mg/dL Salicylates (2.8-20.0) mg/dL Acetaminophen 5.0 L (10.0-30.0) ug/mL All other labs normal. Assessment and Plan - Psychiatric problem (1) Encounter for screening examination for mental health and behavioral disorders Current Visit: Yes Status: Acute
[2020-12-14 09:57] VITALS: BP 133/87
--- NOTE | 2020-12-14 10:35 | Event Note ---
S: Patient is sleeping O: sleeping, easily arousable, stable vital signs, PMHX: schizophrenia A: acute psychosis, paranoid schizophrenia, medication noncompliance, polysubstance abuse, Stephanie Kumar is medically clear for psychiatric care P: MH team will refer patient to inpatient psychiatric treatment unit
== END 2020-12-14 14:09 | disposition home or self-care (01) ==
LOC: ED 13:32
DX: F20.0 Paranoid schizophrenia (principal); F17.200 Nicotine dependence, unspecified, uncomplicated; Z20.822 Contact with and (suspected) exposure to COVID-19; Z79.899 Other long term (current) drug therapy
CPT/HCPCS: 36415; 80048; 80307; 81001; 85025; 96361; 96374; 99285; J2405; J7030; U0003; 80320; G0480